=== PATIENT | female | born 1965 | race Caucasian/White ===

== ENCOUNTER 2020-04-10 18:13 | Emergency (ER) | payer OTHER ==
[~2020-04-10] VITALS: Ht 152.4 cm; Wt 71.8 kg
[2020-04-10 18:17] VITALS: BP 152/87
--- NOTE | 2020-04-10 18:27 | NUR ---
55 YO F BIB SELF C/O DIFFICULTY BREATHING SINCE 3AM. PT IS A KNOWN ASTHMATIC. USED INHALER WITH NO RELIEF. DENIES COUGH, FEVER. UPON ASSESSMENT, VSS. 98% ON RA, WITH AUDIBLE WHEEZING AND LABORED BREATHING. WHEEZING HEARD ON ALL LUNG MARIO. HR NORMAL RATE, REGULAR RHYTHM. PT IS SITTING ON BED WITH 1 SIDERAIL UP. ERMD MADE AWARE OF PT'S STATUS. PMH: ASTHMA NKA
[2020-04-10] MEDS ORDERED: ALBUTEROL SULFATE/IPRATROPIU 3 ML SOL IH ONE (18:45)
[2020-04-10] MEDS ORDERED: DEXAMETHASONE 10 MG/ML VIAL IM ONE (18:45)
--- NOTE | 2020-04-10 18:58 | NUR ---
RADIOLOGY AT BEDSIDE
--- NOTE | 2020-04-10 19:08 | NUR ---
REPORT GIVEN TO SANTOS PETERS. ALL CARE TRANSFERRED AT THIS TIME.
--- NOTE | 2020-04-10 19:10 | NUR ---
REPORT RECIVED FROM MEETA GRAHAM. CONTINUATION OF CARE. PT RECIVING BREATHING TREATMENT AT BEDSIDE. RT AT BEDSIDE.
--- NOTE | 2020-04-10 19:15 | NUR ---
Respiratory Therapist at bedside for respiratory intervention.
--- NOTE | 2020-04-10 20:00 | NUR ---
PT LUNGS SOUNDS WERE CLEAR BILATERALLY THROUGHOUT A&P. SHE WAS OBSERVED BREATHING EVEN AND UNLABORED. EVEIDENCE BY RISE AND FALL. SATURATION WAS 98% ON RA. PT VERBALIZED BEING ABLE TO "BREATH BETTER" HOWEVER SHE DID VERBALIZED HAVING "CHEST TIGHTNESS". ER MD NOTIFIED.
--- NOTE | 2020-04-10 21:09 | NUR ---
EKG BEING PERFORMED AT BEDSIDE.
[2020-04-10 21:45] VITALS: BP 128/84
== END 2020-04-10 21:45 | disposition home or self-care (01) ==
LOC: MED 18:13
DX: J45.901 Unspecified asthma with (acute) exacerbation (principal)
CPT/HCPCS: 71045; 93005; 94640; 96372; 99283; J1100